=== PATIENT | female | born 1950 | race Caucasian/White ===

== ENCOUNTER 2016-11-18 02:46 | Inpatient (IN) | payer MEDICAID ==
[~2016-11-18] VITALS: Ht 167.6 cm; Wt 70.0 kg
[2016-11-18] MEDS ORDERED: ACETAMINOPHEN 325 MG TAB ONE (03:19)
[2016-11-18] MEDS ORDERED: SALINE FLUSH 10 ML FLUSH PRN (06:05)
[2016-11-18] MEDS ORDERED: BISACODYL 10 MG SUPP RECTAL PRN (06:05)
[2016-11-18] MEDS ORDERED: BISACODYL EC 5 MG TAB PO PRN (06:05)
[2016-11-18] MEDS ORDERED: MAG HYDROX 30 ML UDC PO PRN (06:05)
[2016-11-18] MEDS ORDERED: ALU/MAG/SIM 30 ML UDC PO PRN (06:05)
[2016-11-18] MEDS ORDERED: MORPHINE 2 MG/ML SYR IV PRN (06:05)
[2016-11-18] MEDS ORDERED: KETOROLAC 30 MG/ML VIAL ONE (06:29)
[2016-11-18] MEDS ORDERED: CEFTRIAXONE 1 GM VIAL ONE (06:29)
[2016-11-18] MEDS ORDERED: SODIUM CHLORIDE 0.9% 100 ML IV ONE (06:30)
[2016-11-18] MEDS ORDERED: FENTANYL 100 MCG/2 ML AMP ONE (06:30)
[2016-11-18] MEDS ORDERED: SODIUM CHLORIDE 0.9% 1,000 ML ONE (06:30)
[2016-11-18] MEDS ORDERED: LACT RINGERS 1,000 ML IV ONE (06:35)
[2016-11-18] MEDS ORDERED: NICOTINE 21 MG/24 HR TRANSDERM PRN (06:45)
[2016-11-18] MEDS ORDERED: [UNRECOGNIZED DRUG - OTHER] XX SCH (08:11)
[2016-11-18 08:25] VITALS: Ht 167.6 cm; Wt 70.0 kg
[2016-11-18 08:26] VITALS: BP_SYST 110; BP_SYST 118; RESP 18; TEMP 98.4
[2016-11-18] MEDS ORDERED: LEVOFLOXACIN 750 MG/150 ML 150 ML IV SCH (09:00)
[2016-11-18] MEDS ORDERED: MISSING DOSE XX ONE ×2 (09:55→14:20)
[2016-11-18] MEDS: SALINE FLUSH 10 ML FLUSH SCH ×2 (09:57→20:40)
[2016-11-18] MEDS: ENOXAPARIN 40 MG/0.4 ML SYR SUBQ SCH (09:58)
[2016-11-18] MEDS ORDERED: PNEUMO VAC 25 MCG/0.5 ML VL IM.VACC ONE (10:45)
[2016-11-18] MEDS: GUAIFEN/DM 10 ML UDC PO PRN ×2 (10:51→18:03)
[2016-11-18] MEDS: ACETAMINOPHEN 325 MG TAB PO PRN ×2 (10:54→18:03)
[2016-11-18 10:56] VITALS: BP_SYST 142; RESP 18; TEMP 99
[2016-11-18] MEDS ORDERED: AZITHROMYCIN 500 MG in SODIUM CHLORIDE 0.9% 250 ML IV ONE (11:40)
[2016-11-18] MEDS ORDERED: CEFTRIAXONE 2 GM in SODIUM CHLORIDE 0.9% 50 ML IV ONE (11:40)
[2016-11-18] MEDS ORDERED: CEFTRIAXONE 1 GM in SODIUM CHLORIDE 0.9% 50 ML IV ONE (11:50)
[2016-11-18 15:35] VITALS: BP_SYST 133; RESP 18; TEMP 98.3
[2016-11-18 19:38] VITALS: BP_SYST 131; RESP 18; TEMP 98.2
[2016-11-18 23:35] VITALS: BP_SYST 140; RESP 18; TEMP 98.1
[2016-11-19] VITALS (7 sets, daily range): BP systolic 147–176; RESP 16–20; TEMP 98–98.7
[2016-11-19] MEDS: GUAIFEN/DM 10 ML UDC PO PRN ×3 (01:47→16:04)
[2016-11-19] MEDS: SODIUM CHLORIDE 0.9% FLUSH BAG 500 ML IV SCH (06:36)
[2016-11-19] MEDS: ACETAMINOPHEN 325 MG TAB PO PRN ×2 (10:19→16:05)
[2016-11-19] MEDS: ENOXAPARIN 40 MG/0.4 ML SYR SUBQ SCH (10:20)
[2016-11-19] MEDS: CEFTRIAXONE 2 GM in SODIUM CHLORIDE 0.9% 50 ML IV SCH (10:20)
[2016-11-19] MEDS: SALINE FLUSH 10 ML FLUSH SCH ×2 (10:20→21:27)
[2016-11-19] MEDS ORDERED: ACETAMINOPHEN 500 MG TAB PO PRN (11:30)
[2016-11-19] MEDS: AZITHROMYCIN 500 MG in SODIUM CHLORIDE 0.9% 250 ML IV SCH (11:52)
[2016-11-19] MEDS: ASPIRIN 81 MG CHEW TAB PO SCH (12:08)
[2016-11-19] MEDS ORDERED: MISSING DOSE XX ONE (15:35)
[2016-11-19] MEDS: DUONEB INH SCH (18:30)
[2016-11-19] MEDS: ONDANSETRON 4 MG VIAL IV PRN (18:41)
[2016-11-20] VITALS (10 sets, daily range): BP systolic 136–177; RESP 16–20; TEMP 97.7–99
[2016-11-20] MEDS: GUAIFEN/DM 10 ML UDC PO PRN ×3 (01:23→20:15)
[2016-11-20] MEDS: SODIUM CHLORIDE 0.9% FLUSH BAG 500 ML IV SCH (05:10)
[2016-11-20] MEDS: DUONEB INH SCH ×4 (06:30→19:15)
[2016-11-20] MEDS ORDERED: MISSING DOSE XX ONE (09:10)
[2016-11-20] MEDS: SALINE FLUSH 10 ML FLUSH SCH ×2 (09:11→20:44)
[2016-11-20] MEDS: ASPIRIN 81 MG CHEW TAB PO SCH (09:11)
[2016-11-20] MEDS: CEFTRIAXONE 2 GM in SODIUM CHLORIDE 0.9% 50 ML IV SCH (09:12)
[2016-11-20] MEDS: ENOXAPARIN 40 MG/0.4 ML SYR SUBQ SCH (09:12)
[2016-11-20] MEDS: AZITHROMYCIN 500 MG in SODIUM CHLORIDE 0.9% 250 ML IV SCH (10:20)
[2016-11-20] MEDS: ONDANSETRON 4 MG VIAL IV PRN (15:54)
[2016-11-21] MEDS: SODIUM CHLORIDE 0.9% FLUSH BAG 500 ML IV SCH (05:08)
[2016-11-21 07:15] VITALS: BP_SYST 160; RESP 16; TEMP 98.2
[2016-11-21] MEDS: DUONEB INH SCH ×3 (07:23→17:57)
[2016-11-21] MEDS: CEFTRIAXONE 2 GM in SODIUM CHLORIDE 0.9% 50 ML IV SCH (07:53)
[2016-11-21] MEDS: SALINE FLUSH 10 ML FLUSH SCH ×2 (07:53→20:16)
[2016-11-21] MEDS: AZITHROMYCIN 500 MG in SODIUM CHLORIDE 0.9% 250 ML IV SCH (09:26)
[2016-11-21] MEDS: ASPIRIN 81 MG CHEW TAB PO SCH (09:26)
[2016-11-21] MEDS: ENOXAPARIN 40 MG/0.4 ML SYR SUBQ SCH (09:27)
[2016-11-21 10:48] VITALS: BP_SYST 126; RESP 18; TEMP 98.2
[2016-11-21] MEDS ORDERED: Ibuprofen 600 MG TAB PO PRN (11:50)
[2016-11-21 14:45] VITALS: BP_SYST 158; RESP 16; TEMP 98.3
[2016-11-21 19:21] VITALS: BP_SYST 142; RESP 16; TEMP 98.4
[2016-11-21] MEDS: FAMOTIDINE 20 MG TAB PO SCH (20:17)
[2016-11-21] MEDS: ACETAMINOPHEN 325 MG TAB PO PRN (20:18)
[2016-11-21] MEDS: GUAIFEN/DM 10 ML UDC PO PRN (20:18)
[2016-11-21 23:21] VITALS: BP_SYST 150; TEMP 98.2
[2016-11-22] VITALS (7 sets, daily range): BP systolic 150–170; RESP 16–20; TEMP 97.4–98.5
[2016-11-22] MEDS: MORPHINE 2 MG/ML SYR IV PRN ×2 (02:43→11:38)
[2016-11-22] MEDS: SODIUM CHLORIDE 0.9% FLUSH BAG 500 ML IV SCH (05:35)
[2016-11-22] MEDS: DUONEB INH SCH ×3 (06:30→18:30)
[2016-11-22] MEDS: CEFTRIAXONE 2 GM in SODIUM CHLORIDE 0.9% 50 ML IV SCH (08:10)
[2016-11-22] MEDS: SALINE FLUSH 10 ML FLUSH SCH ×2 (08:11→21:50)
[2016-11-22] MEDS: amLODIPine 5 MG TAB PO SCH (09:03)
[2016-11-22] MEDS: ASPIRIN 81 MG CHEW TAB PO SCH (09:03)
[2016-11-22] MEDS: ENOXAPARIN 40 MG/0.4 ML SYR SUBQ SCH (09:04)
[2016-11-22] MEDS: NYSTATIN 500,000 UNITS/5 ML SUSP SWISH.SWAL SCH ×3 (16:02→21:50)
[2016-11-22] MEDS ORDERED: MISSING DOSE XX ONE (21:40)
[2016-11-22] MEDS: FAMOTIDINE 20 MG TAB PO SCH (21:50)
[2016-11-23] MEDS: SODIUM CHLORIDE 0.9% FLUSH BAG 500 ML IV SCH (06:42)
[2016-11-23 06:46] VITALS: BP_SYST 168
[2016-11-23] MEDS: amLODIPine 5 MG TAB PO SCH (06:47)
[2016-11-23] MEDS: DUONEB INH SCH ×3 (07:19→19:47)
[2016-11-23] MEDS ORDERED: MISSING DOSE XX ONE ×2 (10:45→21:35)
[2016-11-23] MEDS: ASPIRIN 81 MG CHEW TAB PO SCH (11:02)
[2016-11-23] MEDS: ENOXAPARIN 40 MG/0.4 ML SYR SUBQ SCH (11:02)
[2016-11-23] MEDS: NYSTATIN 500,000 UNITS/5 ML SUSP SWISH.SWAL SCH ×4 (11:02→21:50)
[2016-11-23] MEDS: GUAIFEN/DM 10 ML UDC PO PRN ×3 (11:02→21:40)
[2016-11-23] MEDS: ACETAMINOPHEN 325 MG TAB PO PRN (11:03)
[2016-11-23] MEDS: CEFTRIAXONE 2 GM in SODIUM CHLORIDE 0.9% 50 ML IV SCH (11:03)
[2016-11-23] MEDS: SALINE FLUSH 10 ML FLUSH SCH ×2 (11:07→21:40)
[2016-11-23 11:16] VITALS: BP_SYST 158; RESP 20; TEMP 98.8
[2016-11-23] MEDS ORDERED: amLODIPine 5 MG TAB PO ONE (13:15)
[2016-11-23 15:26] VITALS: BP_SYST 142; RESP 20; TEMP 98.7
[2016-11-23 19:41] VITALS: BP_SYST 150; RESP 20; TEMP 98.3
[2016-11-23] MEDS: FAMOTIDINE 20 MG TAB PO SCH (21:40)
[2016-11-23 23:01] VITALS: BP_SYST 142; RESP 18; TEMP 98
[2016-11-24 03:00] VITALS: BP_SYST 118; RESP 18; TEMP 97.8
[2016-11-24] MEDS: SODIUM CHLORIDE 0.9% FLUSH BAG 500 ML IV SCH (04:55)
[2016-11-24 07:18] VITALS: BP_SYST 140; RESP 20; TEMP 97.3
[2016-11-24] MEDS: DUONEB INH SCH ×3 (07:22→18:25)
[2016-11-24] MEDS: NYSTATIN 500,000 UNITS/5 ML SUSP SWISH.SWAL SCH ×3 (09:00→17:00)
[2016-11-24] MEDS ORDERED: amLODIPine 10 MG TAB PO SCH (09:00)
[2016-11-24] MEDS: SALINE FLUSH 10 ML FLUSH SCH (09:49)
[2016-11-24] MEDS: CEFTRIAXONE 2 GM in SODIUM CHLORIDE 0.9% 50 ML IV SCH (09:50)
[2016-11-24] MEDS: ASPIRIN 81 MG CHEW TAB PO SCH (09:50)
[2016-11-24] MEDS: ENOXAPARIN 40 MG/0.4 ML SYR SUBQ SCH (09:50)
[2016-11-24 12:04] VITALS: BP_SYST 110; RESP 20; TEMP 98.2
[2016-11-24 15:15] VITALS: BP_SYST 124; RESP 20; TEMP 98.5
[2016-11-24 17:18] VITALS: BP_SYST 124; RESP 20; TEMP 98.5
[2016-11-24 17:20] VITALS: BP_SYST 124; RESP 20; TEMP 98.5
[2016-11-25] MEDS ORDERED: AMOXICILLIN/CLAV 875 MG TAB PO SCH (09:00)
== END 2016-11-24 18:27 | disposition home or self-care (01) | DRG 871 ==
LOC: ENRESERVDT → ENRESERVTM → ER 02:46 → EMR 06:03 → ENPENDDIS 06:03 → OBSVTOIN 06:03 → 4NT 08:05
PROVIDERS: ADMIT Internal Medicine; ATTEND Internal Medicine
CPT/HCPCS: 36415; 71010; 80053; 81001; 82553; 83605; 83880; 84145; 84484; 85025; 86738; 87040; 87071; 87088; 87278; 87299; 87804; 90732; 93005; 94640; 94799; 96374; 96375; 99220; 99232; 99233